=== PATIENT | male | born 1955 | race American Indian/Alaskan Native ===

== ENCOUNTER 2016-10-19 03:10 | Emergency (ER) | payer MEDICAID ==
[2016-10-19] MEDS ORDERED: Naproxen 550 mg Tab PO STA (03:30)
[2016-10-19] MEDS ORDERED: Naproxen 550 mg Tab PO ONE (03:32)
--- NOTE | 2016-10-19 04:05 | C.PDOC ---
History Of Present Illness A 61 y/o M with a Hx of back pain, c/o lower back pain that has worsen today. Pt was seen at [facility] for the same complaint and was given Naprosyn. Denies weakness, numbness, fever, chills, or any other complaints. Time Seen by Provider: 10/19/16 03:40 Chief Complaint (Nursing): Back Pain History Per: Patient History/Exam Limitations: no limitations Onset/Duration Of Symptoms: Persistent Current Symptoms Are (Timing): Still Present Severity: Mild Previous Symptoms: Chronic Pain Recent travel outside of the [place]: No Additional History Per: Patient Past Medical History Reviewed: Historical Data, Nursing Documentation, Vital Signs Vital Signs: Last Vital Signs Temp 97.6 F 10/19/16 03:40 Pulse 73 10/19/16 03:40 Resp 16 10/19/16 03:40 BP 142/96 H 10/19/16 03:40 Pulse Ox 99 10/24/16 11:38 - Medical History PMH: Back Problems, HTN Surgical History: Appendectomy Family History: States: Unknown Family Hx - Social History Hx Alcohol Use: Yes Hx Substance Use: No - Immunization History Hx Tetanus Toxoid Vaccination: No Hx Influenza Vaccination: No Hx Pneumococcal Vaccination: No Review Of Systems Except As Marked, All Systems Reviewed And Found Negative. Constitutional: Negative for: Fever, Chills Musculoskeletal: Positive for: Back Pain Neurological: Negative for: Weakness, Numbness Physical Exam - Physical Exam Appears: Non-toxic, No Acute Distress Skin: Warm, Dry Head: Atraumatic, Normacephalic Cardiovascular: Rhythm Regular, No Murmur Respiratory: Normal Breath Sounds, No Accessory Muscle Use, No Rales, No Rhonchi , No Wheezing Gastrointestinal/Abdominal: Soft, No Tenderness Back: Normal Inspection, No CVA Tenderness, No Vertebral Tenderness, No Paraspinal Tenderness Neurological/Psych: Oriented x3, Normal Speech, Normal Cognition, Normal Motor, Normal Sensation ED Course And Treatment O2 Sat by Pulse Oximetry: 99 (RA) Pulse Ox Interpretation: Normal Medical Decision Making Medical Decision Making: Impression: 61 y/o M with a Hx of back pain, c/o lower back pain that has worsen today. Disposition Counseled Patient/Family Regarding: Diagnosis - Disposition Referrals: [facility] [Outside] Disposition: HOME/ ROUTINE Disposition Time: 03:15 Condition: STABLE Prescriptions: Naproxen [Naprosyn Tab] 375 mg PO TIDPC #20 tab Instructions: Chronic Back Pain (ED) - POA Present On Arrival: None - Clinical Impression Clinical Impression: Chronic back pain - Scribe Statement The provider has reviewed the documentation as recorded by the Scribe Paolo ruiz All medical record entries made by the Scribe were at my direction and personally dictated by me. I have reviewed the chart and agree that the record accurately reflects my personal performance of the history, physical exam, medical decision making, and the department course for this patient. I have also personally directed, reviewed, and agree with the discharge instructions and disposition.
[2016-10-19 12:31] VITALS: BP 142/96; PULSE 73; RESP 16; TEMP 97.6; O2SAT 99
== END 2016-10-19 03:45 | disposition home or self-care (01) ==
LOC: C.ER 03:10
DX: G89.29 Other chronic pain (principal); M54.5 Low back pain